=== PATIENT | female | born 1975 | race Caucasian/White ===

== ENCOUNTER 2020-06-27 11:23 | Emergency (ER) | payer MEDICARE ==
[~2020-06-27] VITALS: Ht 167.6 cm; Wt 81.6 kg
[2020-06-27] MEDS ORDERED: PROMETHAZINE HCL (IM) 25 MG/ML VIAL IM ONE ×2 (12:15→12:42)
[2020-06-27 15:10] VITALS: BP 154/89
[2020-06-27] MEDS ORDERED: CLONIDINE HCL0.1 MG PO (15:13)
[2020-06-27] MEDS ORDERED: PROMETHAZINE HC50 MG PO (15:13)
[2020-06-27] MEDS ORDERED: CYMBALTA60 MG PO (16:03)
[2020-06-27] MEDS ORDERED: NEURONTIN300 MG PO (16:03)
[2020-06-27] MEDS ORDERED: CLONAZEPAM1 MG PO (16:03)
[2020-06-27] MEDS ORDERED: BACLOFEN10 MG PO (16:03)
[2020-06-27] MEDS ORDERED: [UNRECOGNIZED DRUG - OTHER] PO (16:03)
[2020-06-27] MEDS ORDERED: TIZANIDINE HCL4 M1 PO (16:03)
[2020-06-27] MEDS ORDERED: HYDROCODON-ACE1 EAC9 (16:03)
[2020-06-27] MEDS ORDERED: GLEEVEC100 MG (16:03)
[2020-06-27] MEDS ORDERED: MS CONTIN30 MG PO (16:03)
[2020-06-27] MEDS ORDERED: VITAMIN D350 MCG (16:03)
== END 2020-06-27 15:19 | disposition home or self-care (01) ==
LOC: FSED 11:40
DX: G43.909 Migraine, unspecified, not intractable, without status migrainosus (principal); I10 Essential (primary) hypertension; G35 Multiple sclerosis
CPT/HCPCS: 70450; 72125; 96372; 99283; J2550; 93005